=== PATIENT | female | born 1975 | race Caucasian/White ===

== ENCOUNTER 2017-07-16 10:54 | Emergency (ER) | payer OTHER ==
[2017-07-16 11:06] VITALS: BP 153/93; PULSE 60; RESP 16; TEMP 98.2; O2SAT 98
--- NOTE | 2017-07-16 11:38 | EDPHY ---
H & P Time Seen by Provider: 07/16/17 11:14 HPI/ROS: CHIEF COMPLAINT: Finger laceration HISTORY OF PRESENT ILLNESS: The patient is a 42-year-old female who presents emergency department after accidentally cutting her left finger tip. The incident occurred last evening at around 7:00 p.m.. The patient states that she was drinking alcohol and did not want to drive herself to the emergency department or call an ambulance. She complains of ongoing moderate and nonradiating pain. Bleeding is controlled. REVIEW OF SYSTEMS: My complete review of systems is negative except as mentioned in the HPI. Past Medical/Surgical History: Negative Past surgical history: Smoking Status: Never smoked Physical Exam: Vitals noted General Appearance: Alert and no distress. Head: Pupils equal. Normal. Respiratory: No respiratory distress. Cardiac: regular rate and rhythm. Extremities: Patient has an avulsion of the tip of her left index finger. This is not include the nail or nail bed. The avulsion is thin. The skin that is avulsed appears to be nonviable. There is no active bleeding. Skin: No rashes or lesions. Neuro: Alert. Normal mood and affect. Constitutional: Initial Vital Signs Temperature (C) 36.8 C 07/16/17 11:03 Heart Rate 60 07/16/17 11:03 Respiratory Rate 16 07/16/17 11:03 Blood Pressure 153/93 H 07/16/17 11:03 O2 Sat (%) 98 07/16/17 11:03 Allergies/Adverse Reactions: No Known Allergies Allergy (Unverified 07/16/17 11:02) Home Medications: Medication Instructions Recorded NK [No Known Home Meds] 07/16/17 Medical Decision Making ED Course/Re-evaluation: In the emergency department I discussed treatment options with the patient. Patient agrees with the plan. Procedure: Avulsion tip removal. Indication: Avulsed finger tip The patient consented to the procedure. The patient was anesthetized with 1% lidocaine as a digital block. She tolerated the procedure well. The avulsed tissue was cut and removed. The wound was cleaned and dressed. The patient was given warnings prior to leaving. She will return with worsening symptoms. Differential Diagnosis: My differential includes but is not limited to laceration, avulsion, fracture, foreign body Departure - Departure Disposition: Home, Routine, Self-Care Clinical Impression: Avulsion, finger tip Qualifiers: Encounter type: initial encounter Qualified Code(s): S61.209A - Unspecified open wound of unspecified finger without damage to nail, initial encounter Condition: Good Instructions: Skin Avulsion (ED) Additional Instructions: Keep your wound cleaned and dry. Referrals: Ty Bolivar DO [Primary Care Provider] - 5-7 days, call for appt.
[2017-07-16] MEDS ORDERED: IBUPROFEN 600 MG TAB PO ONE (12:25)
== END 2017-07-16 12:29 | disposition home or self-care (01) ==
LOC: CED 10:54
PROC: 0HBQXZZ Excision of Finger Nail, External Approach (ICD-10-PCS; principal; 2017-07-16)
DX: S61.201A Unspecified open wound of left index finger without damage to nail, initial encounter (principal); W26.0XXA Contact with knife, initial encounter